=== PATIENT | male | born 1935 | race Caucasian/White ===

== ENCOUNTER → 2018-02-17 | Outpatient (CLI) | payer MEDICARE ==
[~2018-02-17] MED LIST: BENZONATATE100 MG PO; CALCIUM600 MG PO; CEFOXITIN SOD 1 GM VIAL ONE; FLOMAX0.4 MG PO; LEVOTHYROXINE75 MCG PO; NIACIN500 M2 PO; OMEGA 3 1,0001 EACH PO; PREDNISONE20 MG PO; PROVENTIL HFA6.7 GM INH; SIMVASTATIN10 MG PO; SYMBICORT 16010.2 GM INH; VITAMIN D1000 UNI1 PO; VITAMIN E1000 UNI1 PO
[2018-02-17 10:49] LABS: BASOPHILS # (AUTO) 0.1 (0.0-0.1); BASOPHILS % 0.8 % (0.0-1.0); EOSINOPHILS # (AUTO) 0.4 (0.0-0.4); EOSINOPHILS % 4.6 % (0.0-6.0); HEMATOCRIT 38.3 % (38.2-49.6); HEMOGLOBIN 13.3 g/dL (14.0-18.0); LYMPHOCYTES # (AUTO) 1.5 (1.0-3.2); LYMPHOCYTES % 17.4 % (18.0-39.1); MEAN CORPUSCULAR HEMOGLOBIN 29.6 pg (28-32); MEAN CORPUSCULAR HGB CONC 34.7 g/dL (31-35); MEAN CORPUSCULAR VOLUME 85.1 fL (81-99); MONOCYTES # (AUTO) 1.2 (0.2-0.8); NEUTROPHILS # (AUTO) 5.5 (2.1-6.9); NEUTROPHILS % 62.4 % (38.7-80.0); PLATELET COUNT 326 x10e3/uL (140-360); RED CELL DISTRIBUTION WIDTH 12.9 % (11.7-14.4)
--- NOTE | 2018-02-17 10:57 | Diagnostic Imaging Report ---
PROCEDURE: Frontal and lateral views of the chest. COMPARISON: None. INDICATIONS: PRE OPERATIVE CHEST X-RAY FOR PROSTATE SX FINDINGS: Lines/tubes: None. Lungs: The lungs are moderately inflated. There are perihilar and interstitial opacities. There is linear opacity in the right upper lung which could represent scarring. A nodular opacity is present in the left upper lung, which could represent overlying rib or a lung nodule. Nodular opacity projects over the left lower lung. Patchy bibasilar atelectasis. Pleura: There is no pleural effusion or pneumothorax. Heart and mediastinum: The cardiomediastinal silhouette is unremarkable. Bones: No acute bony abnormality. IMPRESSION: Emphysematous changes of the lungs without specific evidence of pneumonia or pulmonary edema. Possible pulmonary nodules on the left. Correlation with prior imaging or chest CT is suggested for further evaluation. Dictated by: JIAN HECTOR M.D. on 02/17/2018 at 11:05 Electronically approved by: JIAN HECTOR M.D. on 02/17/2018 at 11:05
[2018-02-17 11:02] LABS: INR 0.93; PROTHROMBIN TIME 13.3 seconds (11.9-14.5)
[2018-02-17 11:03] LABS: PARTIAL THROMBOPLASTIN TIME 29.4 seconds (23.8-35.5)
[2018-02-17 11:12] LABS: ALANINE AMINOTRANSFERASE 8 IU/L (0-55); ALBUMIN 3.7 g/dL (3.5-5.0); ALKALINE PHOSPHATASE 77 IU/L (40-150); ANION GAP 17.2 mmol/L (8-16); BLOOD UREA NITROGEN 10 mg/dL (7-26); BUN/CREATININE RATIO 14 (6-25); CALCIUM 9.8 mg/dL (8.4-10.2); CARBON DIOXIDE 20 mmol/L (22-29); CHLORIDE 90 mmol/L (98-107); CREATININE, SERUM 0.72 mg/dL (0.72-1.25); EST GLOMERULAR FILTRATION RATE > 60 ML/MIN (60-); GLUCOSE 97 mg/dL (74-118); POTASSIUM 4.2 mmol/L (3.5-5.1); SODIUM 123 mmol/L (136-145)
--- OUTSIDE RECORDS SUMMARY | 2018-02-22 13:17 | XMS REPORT ---
Author [facility] Address Unknown Phone Unavailable Care Team Providers Care Clerical And Office Support Workers Name Role Phone ARIE ESTEVEZ Unavailable Unavailable Problems This patient has no known problems. Allergies, Adverse Reactions, Alerts This patient has no known allergies or adverse reactions. Medications This patient has no known medications. Results Test Description Test Time Test Comments Text Results Atomic Results Result Comments CHEST 2 VIEWS 2018-02-17 11:05:00 [place] [address] Patient Name: JULIA LEAL MR #: [id number] : 1935 Age/Sex: 82/M Req #: [id number] Adm Physician: Ordered by: ARIE ESTEVEZ MD Report #: [id number] Location: OR Room/Bed: Procedure: [id number] DX/CHEST 2 VIEWS Exam Date: Exam Time: REPORT STATUS: Signed PROCEDURE: Frontal and lateral views of the chest. COMPARISON: None. INDICATIONS: PRE OPERATIVE CHEST X-RAY FOR PROSTATE SX FINDINGS: Lines/tubes: None. Lungs: The lungs are moderately inflated. There are perihilar and interstitial opacities. There is linear opacity in the right upper lung which could represent scarring. A nodular opacity is present in the left upper lung, which could represent overlying rib or a lung nodule. Nodular opacity projects over the left lower lung. Patchy bibasilar atelectasis. Pleura: There is no pleural effusion or pneumothorax. Heart and mediastinum: The cardiomediastinal silhouette is unremarkable. Bones: No acute bony abnormality. IMPRESSION: Emphysematous changes of the lungs without specific evidence of pneumonia or pulmonary edema. Possible pulmonary nodules on the left. Correlation with prior imaging or chest CT is suggested for further evaluation. Dictated by: JIAN HECTOR M.D. on 02/17/2018 at 11:05 Electronically approved by: JIAN HECTOR M.D. on 02/17/2018 at 11:05 Dictated By: JIAN HECTOR MD [id number] Transcribed By: GERTRUDIS on 02/17/18 1105 COPY TO: ARIE ESTEVEZ MD
--- OUTSIDE RECORDS SUMMARY | 2018-02-22 13:17 | XMS REPORT | Clinical Summary ---
Author Author [facility] Organization [facility] Address Unknown Phone Unavailable Care Team Providers Care Physicist [employer] Name Role Phone Luc William MD PCP Allergies Active Allergy Reactions Severity Noted Date Comments Codeine 02/18/2018 Current Medications Prescription Sig. Disp. Refills Start End Date Status Date PROVENTIL HFA 90 TAKE 2 PUFFS BY MOUTH 3 07/11/19 Active mcg/actuation inhaler EVERY 4 HOURS NEEDED 18 SYMBICORT 160-4.5 INHALE 2 PUFF TWICE DAILY 4 08/18/19 Active mcg/actuation inhaler 18 levothyroxine (SYNTHROID, Take 75 mcg by mouth 1 06/28/19 Active LEVOXYL) 75 mcg tablet daily. 18 predniSONE (DELTASONE) 20 DUE 06/26/17TAKE ONE 4 06/29/19 Active mg tablet TABLET BY MOUTH ONCE 18 DAILY simvastatin (ZOCOR) 10 MG Take 10 mg by mouth every 1 08/24/19 Active tablet evening. 18 tamsulosin (FLOMAX) 0.4 TAKE 1 CAPSULE BY MOUTH 2 08/12/19 Active mg capsule,extended EVERY DAY DIRECTED 18 release 24hr sodium chloride 1 gram Take 2 tablets (2 g 120 tablet 0 02/22/20 03/23/20 Active tablet total) by mouth 2 (two) 18 18 times a day with meals for 30 days. Active Problems Problem Noted Date Acute hyponatremia 02/18/2018 Electrolyte and fluid disorder 02/18/2018 Obstructive chronic bronchitis with exacerbation (HCC) 02/18/2018 Encounters Date Type Specialty Care Team Description 02/18/2018 [facility] General Internal Medicine Thomas Cole Acute hyponatremia - Encounter MD Wayne (Primary Dx) 02/21/2018 Luc William MD Burns, Carrie Kay, MD 09/12/2017 Emergency Emergency Medicine [facility], Titus Everett, MD Fall, initial encounter - (Primary Dx); 09/13/2017 Closed head injury, initial encounter; Superficial laceration; Dizziness 06/22/2017 Hospital Radiology Natacha Jackson MD Cough; Encounter Breath shortness 06/22/2017 Ancillary Radiology Natacha Jackson MD Cough; Orders Breath shortness after 02/17/2017 Social History Tobacco Use Types Packs/Day Years Used Date Never Smoker Smokeless Tobacco: Never Used Alcohol Use Drinks/Week oz/Week Comments No Sex Assigned at Date Recorded Not on file Last Filed Vital Signs Vital Sign Reading Time Taken Blood Pressure 156/69 02/21/2018 12:08 PM CDT Pulse 54 02/21/2018 12:08 PM CDT Temperature 36.1 C (97 F) 02/21/2018 12:08 PM CDT Respiratory Rate 18 02/21/2018 12:08 PM CDT Oxygen Saturation 95% 02/21/2018 12:08 PM CDT Inhaled Oxygen - - Concentration Weight 79.8 kg (176 lb) 02/18/2018 3:01 PM CDT Height 185.4 cm (6' 1") 02/18/2018 7:40 PM CDT Body Mass Index 23.22 02/18/2018 3:01 PM CDT Plan of Treatment Health Maintenance Due Date Last Done Comments SHINGRIX VACCINE (#1) 1984 ZOSTER VACCINE 1994 PNEUMOCOCCAL Completed 04/01/2015 POLYSACCHARIDE VACCINE AGE 65 AND OVER PNEUMOCOCCAL-13 Completed 04/30/2016 INFLUENZA VACCINE Completed 02/15/2018, 02/04/2017, 02/28/2016, Additional history exists Implants Implanted Type Area Collar Stitcher Device Expiration Model / Identifier Date Serial / Lot Bone Plate Bone Plate Procedures Procedure Name Priority Date/Time Associated Diagnosis Comments ESTIMATED GFR Timed 02/21/2018 Results for this 10:46 AM CDT procedure are in the results section. BASIC METABOLIC PANEL Timed 02/21/2018 Results for this 10:46 AM CDT procedure are in the results section. ESTIMATED GFR Timed 02/21/2018 Results for this 6:13 AM CDT procedure are in the results section. PHOSPHORUS LEVEL Timed 02/21/2018 Results for this 6:13 AM CDT procedure are in the results section. MAGNESIUM LEVEL Timed 02/21/2018 Results for this 6:13 AM CDT procedure are in the results section. BASIC METABOLIC PANEL Timed 02/21/2018 Results for this 6:13 AM CDT procedure are in the results section. IONIZED CALCIUM Routine 02/21/2018 Results for this 6:13 AM CDT procedure are in the results section. ESTIMATED GFR Timed 02/20/2018 Results for this 12:05 PM CDT procedure are in the results section. BASIC METABOLIC PANEL Timed 02/20/2018 Results for this 12:05 PM CDT procedure are in the results section. ESTIMATED GFR Timed 02/20/2018 Results for this 4:58 AM CDT procedure are in the results section. PHOSPHORUS LEVEL Timed 02/20/2018 Results for this 4:58 AM CDT procedure are in the results section. MAGNESIUM LEVEL Timed 02/20/2018 Results for this 4:58 AM CDT procedure are in the results section. BASIC METABOLIC PANEL Timed 02/20/2018 Results for this 4:58 AM CDT procedure are in the results section. IONIZED CALCIUM Routine 02/20/2018 Results for this 4:58 AM CDT procedure are in the results section. ESTIMATED GFR Timed 02/20/2018 Results for this 12:05 AM CDT procedure are in the results section. BASIC METABOLIC PANEL Timed 02/20/2018 Results for this 12:05 AM CDT procedure are in the results section. ESTIMATED GFR Timed 02/19/2018 Results for this 6:40 PM CDT procedure are in the results section. BASIC METABOLIC PANEL Timed 02/19/2018 Results for this 6:40 PM CDT procedure are in the results section. XR CHEST 2 VW Routine 02/19/2018 Results for this 4:43 PM CDT procedure are in the results section. SODIUM LEVEL, URINE, Routine 02/19/2018 Results for this RANDOM 10:03 AM CDT procedure are in the results section. OSMOLALITY, URINE Routine 02/19/2018 Results for this 10:03 AM CDT procedure are in the results section. THYROID STIMULATING Routine 02/19/2018 Results for this HORMONE 5:20 AM CDT procedure are in the results section. CORTISOL LEVEL, AM Routine 02/19/2018 Results for this 5:20 AM CDT procedure are in the results section. ESTIMATED GFR Routine 02/19/2018 Results for this 5:20 AM CDT procedure are in the results section. COMPREHENSIVE METABOLIC Routine 02/19/2018 Results for this PANEL 5:20 AM CDT procedure are in the results section. IONIZED CALCIUM Routine 02/19/2018 Results for this 5:20 AM CDT procedure are in the results section. URIC ACID LEVEL Routine 02/19/2018 Results for this 5:20 AM CDT procedure are in the results section. OSMOLALITY, SERUM Routine 02/19/2018 Results for this 5:20 AM CDT procedure are in the results section. TROPONIN Timed 02/18/2018 Results for this 7:19 PM CDT procedure are in the results section. ECG ED PRELIMINARY Routine 02/18/2018 Results for this INTERPRETATION 4:56 PM CDT procedure are in the results section. THYROID STIMULATING Routine 02/18/2018 Results for this HORMONE 3:50 PM CDT procedure are in the results section. ESTIMATED GFR STAT 02/18/2018 Results for this 3:50 PM CDT procedure are in the results section. B NATRIURETIC PEPTIDE STAT 02/18/2018 Results for this 3:50 PM CDT procedure are in the results section. TROPONIN STAT 02/18/2018 Results for this 3:50 PM CDT procedure are in the results section. COMPREHENSIVE METABOLIC STAT 02/18/2018 Results for this PANEL 3:50 PM CDT procedure are in the results section. HC COMPLETE BLD COUNT STAT 02/18/2018 Results for this W/AUTO DIFF 3:50 PM CDT procedure are in the results section. ECG 12-LEAD STAT 02/18/2018 Results for this 3:08 PM CDT procedure are in the results section. CT HEAD WO CONTRAST STAT 09/13/2017 Results for this 12:08 AM CDT procedure are in the results section. ZZESTIMATED GFR STAT 09/12/2017 Results for this 11:30 PM CDT procedure are in the results section. B NATRIURETIC PEPTIDE STAT 09/12/2017 Results for this 11:30 PM CDT procedure are in the results section. TROPONIN STAT 09/12/2017 Results for this 11:30 PM CDT procedure are in the results section. COMPREHENSIVE METABOLIC STAT 09/12/2017 Results for this PANEL 11:30 PM CDT procedure are in the results section. HC COMPLETE BLD COUNT STAT 09/12/2017 Results for this W/AUTO DIFF 11:30 PM CDT procedure are in the results section. ECG ED PRELIMINARY Routine 09/12/2017 Results for this INTERPRETATION 11:09 PM CDT procedure are in the results section. ECG 12-LEAD STAT 09/12/2017 Results for this 10:55 PM CDT procedure are in the results section. XR CHEST 2 VW Routine 06/22/2017 Cough Results for this 12:50 PM DRAW FRAME OPERATOR Breath shortness procedure are in the results section. after 02/17/2017 Results * Estimated GFR (02/21/2018 10:46 AM) Only the most recent of 8 results within the time period is included. Estimated GFR 82 mL/min/1.73 m2 [facility] DEPARTMENT OF Comment: PATHOLOGY AND [employer] GENOMIC MEDICINE rpretation G1 >=90 Normal or high G2 60-89Mildly decreased [id number] Mildly to moderately decreased [id number] Moderately to severely decreased G4 15-29Severely decreased G5 <15Kidney failure The eGFR was calculated using the Chronic Kidney Disease Epidemiology Collaboration (CKD-EPI) equation. Interpretation is based on recommendations of the National Kidney Foundation-Kidney Disease Outcomes Quality Initiative (NKF-KDOQI) published in 2014. Specimen Plasma specimen Performing Organization Address City/[facility] Phone Number [address] [place] [facility] * Basic metabolic panel (02/21/2018 10:46 AM) Only the most recent of 6 results within the time period is included. Sodium 130 (L) 135 - 150 mEq/L [facility] DEPARTMENT OF PATHOLOGY AND [place] MEDICINE Potassium 4.5 3.5 - 5.0 mEq/L [facility] DEPARTMENT OF PATHOLOGY AND [place] MEDICINE Chloride 94 (L) 98 - 112 mEq/L [facility] DEPARTMENT OF PATHOLOGY AND [place] MEDICINE CO2 27 24 - 31 mmol/L [facility] DEPARTMENT OF PATHOLOGY AND [place] MEDICINE Anion gap 9@ANIO 7 - 15 mEq/L [facility] DEPARTMENT OF PATHOLOGY AND GENOMIC MEDICINE BUN 9 7 - 18 mg/dL [facility] DEPARTMENT OF PATHOLOGY AND [place] MEDICINE Creatinine 0.80 0.70 - 1.20 mg/dL [facility] DEPARTMENT OF PATHOLOGY AND [place] MEDICINE Glucose 93 65 - 100 mg/dL [facility] DEPARTMENT OF PATHOLOGY AND [place] MEDICINE Calcium 9.3 8.8 - 10.2 mg/dL [facility] PATHOLOGY AND [place] MEDICINE Specimen Plasma specimen Performing Organization Address City/State/Zipcode Phone Number [address] [place] [id number] [place] [address] [place] [facility] * Phosphorus level (02/21/2018 6:13 AM) Only the most recent of 2 results within the time period is included. Phosphorus 2.2 (L) 2.4 - 4.5 mg/dL [facility] DEPARTMENT OF PATHOLOGY AND GENOMIC MEDICINE Specimen Plasma specimen Performing Organization Address City/[facility] [place] [address] PATHOLOGY AND GENOMIC MEDICINE * Magnesium level (02/21/2018 6:13 AM) Only the most recent of 2 results within the time period is included. Magnesium 1.70 1.60 - 2.40 mg/dL [facility] DEPARTMENT OF PATHOLOGY AND GENOMIC MEDICINE Specimen Plasma specimen Performing Organization Address [facility] [place] [address] PATHOLOGY AND [place] MEDICINE * Ionized calcium (02/21/2018 6:13 AM) Only the most recent of 3 results within the time period is included. pH 7.38 [facility] DEPARTMENT OF PATHOLOGY AND GENOMIC MEDICINE Ionized calcium 1.25 1.11 - 1.32 mmol/L [facility] OF PATHOLOGY AND GENOMIC MEDICINE Specimen Plasma specimen Performing Organization Address [facility] [place] [address] PATHOLOGY AND [place] MEDICINE * XR Chest 2 Vw (02/19/2018 4:43 PM) Only the most recent of 2 results within the time period is included. Narrative Performed At XR CHEST 2 VW [facility] CLINICAL INDICATION:eval for any poss masses - pt has siadh COMPARISON:06/22/2017, 06/29/2016 IMPRESSION: Heart and mediastinal borders are within normal limits and without change. As on prior exam, there are multifocal areas of radiating pleural-parenchymal disease more prominent in the lung apices and without significant change from remote exams. No pulmonary mass is identified. There is no effusion or pneumothorax. Bones are demineralized with mild degenerative changes. No active disease or change. Thank you for allowing us to participate in the care of your patient. [facility]-[id number] Procedure Note Hm Interface, Radiology Results Incoming - 02/19/2018 4:49 PM CDT XR CHEST 2 VW CLINICAL INDICATION: eval for any poss masses - pt has siadh COMPARISON: 06/22/2017, 06/29/2016 IMPRESSION: Heart and mediastinal borders are within normal limits and without change. As on prior exam, there are multifocal areas of radiating pleural-parenchymal disease more prominent in the lung apices and without significant change from remote exams. No pulmonary mass is identified. There is no effusion or pneumothorax. Bones are demineralized with mild degenerative changes. No active disease or change. Thank you for allowing us to participate in the care of your patient. [facility]-[id number] Performing Organization Address [facility]ode Phone Number [facility] [address] [place] [id number] * Sodium level, urine, random (02/19/2018 10:03 AM) Sodium, urine, random 115 mEQ/L [facility] DEPARTMENT OF PATHOLOGY AND GENOMIC MEDICINE Specimen Urine Performing Organization Address [facility] [place] [address] PATHOLOGY AND GENOMIC MEDICINE * Osmolality, urine (02/19/2018 10:03 AM) Osmolality, urine 396 50 - 1,400 mOsm/kg [facility] DEPARTMENT OF PATHOLOGY AND GENOMIC MEDICINE Specimen Urine - Urine, clean catch Performing Organization Address [facility] [place] [address] PATHOLOGY AND [facility] MEDICINE * Cortisol level, AM (02/19/2018 5:20 AM) Cortisol, AM 13 6 - 18 ug/dL [facility] DEPARTMENT OF PATHOLOGY AND GENOMIC MEDICINE Specimen Plasma specimen Performing Organization Address [facility] Phone Number [facility] DEPARTMENT [address] [place] [address] PATHOLOGY AND [facility] MEDICINE * Uric acid level (02/19/2018 5:20 AM) Uric acid 2.1 (L) 3.4 - 7.0 mg/dL [facility] DEPARTMENT PATHOLOGY AND GENOMIC MEDICINE Specimen Plasma specimen Performing Organization [facility] [place] [place] [address] PATHOLOGY AND GENOMIC MEDICINE * Thyroid stimulating hormone (02/19/2018 5:20 AM) Only the most recent of 2 results within the time period is included. TSH 3.59 0.27 - 4.20 uIU/mL [facility] DEPARTMENT OF PATHOLOGY AND GENOMIC MEDICINE Specimen Plasma specimen Performing Organization Address [facility]ode Phone Number [facility] DEPARTMENT [address] [place] [address] PATHOLOGY AND GENOMIC MEDICINE * Osmolality, serum (02/19/2018 5:20 AM) Osmolality 262 (L) 275 - 295 mOsm/kg [facility] DEPARTMENT OF PATHOLOGY AND GENOMIC MEDICINE Specimen Blood Performing Organization Address [facility]ode Phone Number [facility] DEPARTMENT [address] [place] [phone] PATHOLOGY AND GENOMIC MEDICINE * Comprehensive metabolic panel (02/19/2018 5:20 AM) Only the most recent of 3 results within the time period is included. Sodium 125 (L) 135 - 150 mEq/L [facility] DEPARTMENT OF PATHOLOGY AND GENOMIC MEDICINE Potassium 4.5 3.5 - 5.0 mEq/L [facility] DEPARTMENT OF PATHOLOGY AND GENOMIC MEDICINE Chloride 89 (L) 98 - 112 mEq/L [facility] DEPARTMENT OF PATHOLOGY AND GENOMIC MEDICINE CO2 26 24 - 31 mmol/L [facility] DEPARTMENT OF PATHOLOGY AND GENOMIC MEDICINE Anion gap 10@ANIO 7 - 15 mEq/L [facility] DEPARTMENT OF PATHOLOGY AND GENOMIC MEDICINE BUN 8 7 - 18 mg/dL [facility] DEPARTMENT OF PATHOLOGY AND GENOMIC MEDICINE Creatinine 0.80 0.70 - 1.20 mg/dL [facility] DEPARTMENT OF PATHOLOGY AND GENOMIC MEDICINE Glucose 96 65 - 100 mg/dL [facility] DEPARTMENT OF PATHOLOGY AND GENOMIC MEDICINE Calcium 8.9 8.8 - 10.2 mg/dL [facility] DEPARTMENT OF PATHOLOGY AND GENOMIC MEDICINE Protein 6.4 6.3 - 8.3 g/dL [facility] DEPARTMENT OF PATHOLOGY AND GENOMIC MEDICINE Albumin 3.1 (L) 3.5 - 5.0 g/dL [facility] DEPARTMENT OF PATHOLOGY AND GENOMIC MEDICINE A/G ratio 0.9 0.7 - 3.8 [facility] DEPARTMENT OF PATHOLOGY AND GENOMIC MEDICINE Alkaline phosphatase 67 0 - 129 U/L [facility] DEPARTMENT OF PATHOLOGY AND GENOMIC MEDICINE AST 16 10 - 50 U/L [facility] DEPARTMENT OF PATHOLOGY AND GENOMIC MEDICINE ALT 6 5 - 50 U/L [facility] DEPARTMENT OF PATHOLOGY AND GENOMIC MEDICINE Total bilirubin 0.3 0.2 - 1.2 mg/dL [facility] DEPARTMENT OF PATHOLOGY AND GENOMIC MEDICINE Specimen Plasma specimen Performing Organization Address [facility]ode Phone Number [facility] [address] [place] [address] PATHOLOGY AND GENOMIC MEDICINE * Troponin (02/18/2018 7:19 PM) Only the most recent of 3 results within the time period is included. Troponin <0.30 0.00 - 0.30 ng/mL [facility] DEPARTMENT OF Comment: PATHOLOGY AND 0.11 - 1.49 GENOMIC MEDICINE ng/mlMay indicate increased risk of acute coronary syndrome. >=1.5 ng/ml Consistent with acute myocardial infarction. The diagnostic value of a single normal or non-diagnostic result is questionable.Serial samples at 2-6 hour intervals are required to rule out acute myocardial injury. Specimen Plasma specimen Performing Organization Address City/State/Zipcode Phone Number [facility] DEPARTMENT OF [address] [place] [address] PATHOLOGY AND GENOMIC MEDICINE * ECG ED Preliminary Interpretation - NOT AN ORDER (02/18/2018 4:56 PM) Only the most recent of 2 results within the time period is included. Narrative Performed At Thomas Cole MD 02/19/20185:20 PM ECG ED Preliminary Interpretation - Not an Order Performed by: THOMAS COLE Authorized by: THOMAS COLE ECG reviewed by ED Physician in the absence of a director style: yes Interpretation: Interpretation: normal Rate: ECG rate:69 ECG rate assessment: normal Rhythm: Rhythm: sinus rhythm Ectopy: Ectopy: none QRS: QRS axis:Normal QRS intervals:Normal Conduction: Conduction: normal ST segments: ST segments:Normal T waves: T waves: normal * CBC with platelet and differential (02/18/2018 3:50 PM) Only the most recent of 2 results within the time period is included. WBC 7.5 4.2 - 11.0 k/uL [facility] DEPARTMENT OF PATHOLOGY AND GENOMIC MEDICINE RBC 4.43 4.04 - 5.86 m/uL [facility] DEPARTMENT OF PATHOLOGY AND GENOMIC MEDICINE HGB 13.0 13.0 - 17.3 g/dL [facility] DEPARTMENT OF PATHOLOGY AND GENOMIC MEDICINE HCT 38.0 34.0 - 45.0 % [facility] DEPARTMENT OF PATHOLOGY AND GENOMIC MEDICINE MCV 85.8 80.0 - 98.0 fL [facility] DEPARTMENT OF PATHOLOGY AND GENOMIC MEDICINE MCH 29.3 27.0 - 34.0 pg [facility] DEPARTMENT OF PATHOLOGY AND GENOMIC MEDICINE MCHC 34.2 31.5 - 36.5 g/dL [facility] DEPARTMENT OF PATHOLOGY AND GENOMIC MEDICINE RDW - SD 40.2 37.0 - 51.0 fL [facility] DEPARTMENT OF PATHOLOGY AND GENOMIC MEDICINE MPV 8.1 7.4 - 10.4 fL [facility] DEPARTMENT OF PATHOLOGY AND [place] MEDICINE Platelet count 344 150 - 400 k/uL [facility] DEPARTMENT OF PATHOLOGY AND GENOMIC MEDICINE Nucleated RBC 0.00 /100 WBC [facility] DEPARTMENT OF PATHOLOGY AND GENOMIC MEDICINE Neutrophils 62.4 36.0 - 66.0 % [facility] DEPARTMENT OF PATHOLOGY AND GENOMIC MEDICINE Lymphocytes 16.8 (L) 24.0 - 44.0 % [facility] DEPARTMENT PATHOLOGY AND GENOMIC MEDICINE Monocytes 14.0 (H) 0.0 - 6.0 % [facility] DEPARTMENT PATHOLOGY AND GENOMIC MEDICINE Eosinophils 5.6 0.0 - 6.0 % [facility] PATHOLOGY AND [place] MEDICINE Basophils 0.7 0.0 - 1.2 % [facility] PATHOLOGY AND [place] MEDICINE Immature granulocytes 0.5 0.0 - 1.0 % [facility] PATHOLOGY AND GENOMIC MEDICINE Specimen Blood Performing Organization Address City/[facility]/[place] [address] PATHOLOGY AND [facility] * B natriuretic peptide (02/18/2018 3:50 PM) Only the most recent of 2 results within the time period is included. BNP 31 0 - 100 pg/mL [facility] PATHOLOGY [facility] [place] MEDICINE Specimen Blood Performing Organization Address City/[facility] [place] [address] PATHOLOGY AND [facility] * ECG 12 lead (02/18/2018 3:08 PM) Only the most recent of 2 results within the time period is included. Ventricular rate 69 [facility] Atrial rate 69 [facility] FL interval 148 [facility] QRSD interval 98 [facility] QT interval 370 [facility] QTC interval 396 [facility] P axis 1 76 [facility] QRS axis 1 -4 [facility] T wave axis 66 [facility] EKG impression Normal sinus rhythm with sinus [facility] arrhythmia-Normal ECG-In automated comparison with ECG of 12-SEP-2017 22:55,-aberrant conduction is no longer present-Borderline criteria for Inferior infarct are no longer present-T wave inversion no longer evident in Inferior leads- Performing Organization Address City/State/Zipcode Phone Number [facility] MUSE [address] [place] [address] * CT Head Wo Contrast (09/13/2017 12:08 AM) Narrative Performed At EXAMINATION: CT HEAD WO CONTRAST [facility] CLINICAL HISTORY: fall dizziness COMPARISON:None. TECHNIQUE: Noncontrast enhanced images of the brain were obtained from the skull base to the vertex. Both soft tissue and bone reconstruction algorithms were performed. CT scans are performed using radiation dose reduction techniques (iterative reconstruction and/or automated exposure control). Technical factors are evaluated and adjusted to ensure appropriate moderation of exposure. Automated dose management technology is applied to adjust radiation exposure while achieving a diagnostic quality image. FINDINGS: Age-related brain parenchymal volume loss. Nonspecific hypoattenuation of the supratentorial white matter, likely chronic microangiopathic changes. Mild cerebrovascular calcifications. The brain parenchyma is otherwise unremarkable. The cote-white matter differentiation is preserved. No evidence of acute intra or extra-axial hemorrhage, mass, mass effect or acute territorial infarction. There is no acute hydrocephalus. Basal cisterns are patent. No acute soft tissue hematoma or laceration. No skull fractures or aggressive bony lesions. Paranasal sinuses and mastoid air cells are clear. Orbits are normal. IMPRESSION: No acute intracranial abnormality identified. [facility]-[id number] Procedure Note Interface, Radiology Results Incoming - 09/13/2017 12:27 AM CDT EXAMINATION: CT HEAD WO CONTRAST CLINICAL HISTORY: fall dizziness COMPARISON: None. TECHNIQUE: Noncontrast enhanced images of the brain were obtained from the skull base to the vertex. Both soft tissue and bone reconstruction algorithms were performed. CT scans are performed using radiation dose reduction techniques (iterative reconstruction and/or automated exposure control). Technical factors are evaluated and adjusted to ensure appropriate moderation of exposure. Automated dose management technology is applied to adjust radiation exposure while achieving a diagnostic quality image. FINDINGS: Age-related brain parenchymal volume loss. Nonspecific hypoattenuation of the supratentorial white matter, likely chronic microangiopathic changes. Mild cerebrovascular calcifications. The brain parenchyma is otherwise unremarkable. The cote-white matter differentiation is preserved. No evidence of acute intra or extra-axial hemorrhage, mass, mass effect or acute territorial infarction. There is no acute hydrocephalus. Basal cisterns are patent. No acute soft tissue hematoma or laceration. No skull fractures or aggressive bony lesions. Paranasal sinuses and mastoid air cells are clear. Orbits are normal. IMPRESSION: No acute intracranial abnormality identified. [facility]-[id number] Performing Organization Address City/State/Zipcode Phone Number [phone] [place] [address] * Estimated GFR (09/12/2017 11:30 PM) GFR Non Af Amer 81 mL/min/1.73 m2 [facility] DEPARTMENT OF PATHOLOGY AND GENOMIC MEDICINE GFR Af Amer >90 mL/min/1.73 m2 [facility] DEPARTMENT OF Comment: PATHOLOGY AND Chronic kidney disease: <60 GENOMIC MEDICINE mL/min/1.73m2 Kidney failure: <15 mL/min/1.73m2 The estimated GFR is calculated from the IDMS-traceable Modification of Diet in Renal Disease Equation. The accuracy of the calculation is poor when the creatinine is normal. Calculated values >90 mL/min/1.73m2 are not reported. This equation has not been validated in children (<18 years), women, the elderly (>70 years), or ethnic groups other than Caucasians and Americans. Specimen Plasma specimen Performing Organization Address City/State/Zipcode Phone Number [facility] DEPARTMENT [place] [phone] [place] [address] PATHOLOGY AND GENOMIC MEDICINE after 02/17/2017 Insurance Payer Benefit Subscriber ID Type Phone Address Plan / Group [employer] MED[employer] xxxxxxxxx [place] [address]
== END ==
LOC: RAD 05:00 → OR 02-18 08:49 → EDSTATUS 02-18 11:30
PROVIDERS: ATTEND Urology
DX: Z01.818 Encounter for other preprocedural examination (principal); N40.0 Benign prostatic hyperplasia without lower urinary tract symptoms; Z53.8 Procedure and treatment not carried out for other reasons
CPT/HCPCS: 36415; 71046; 80053; 84295; 85025; 85610; 85730; 93005; J0694